=== PATIENT | female | born 1980 | race Caucasian/White ===

== ENCOUNTER 2024-03-01 22:29 | Emergency (ER) | payer SELFPAY ==
[~2024-03-01] VITALS: Ht 152.4 cm; Wt 101.2 kg
[2024-03-01] MEDS: METHYLPREDNISOLONE SOD SUCC 125 MG/2ML VIAL IV STA (22:50)
[2024-03-01] MEDS: METOCLOPRAMIDE HCL 10 MG/2ML VIAL IV STA (22:50)
[2024-03-01] MEDS: KETOROLAC TROMETHAMINE 30 MG/ML VIAL IV STA (22:50)
[2024-03-01] MEDS: DIPHENHYDRAMINE HCL INJ 50 MG/ML VIAL IV STA (22:50)
[2024-03-01] MEDS ORDERED: KETOROLAC TROMETHAMINE 30 MG/ML VIAL ONE (22:51)
[2024-03-01] MEDS: SODIUM CHLORIDE 0.9% 1000ML 1,000 ML IV STA (22:51)
[2024-03-01] MEDS ORDERED: METOCLOPRAMIDE HCL 10 MG/2ML VIAL ONE (22:51)
[2024-03-01 23:13] LABS: BASOPHILS # (AUTO) 0.1 (0.0-0.1); BASOPHILS % 0.4 % (0.0-1.0); EOSINOPHILS # (AUTO) 0.3 (0.0-0.4); EOSINOPHILS % 2.5 % (0.0-6.0); LYMPHOCYTES # (AUTO) 3.9 (1.0-3.2); MEAN CORPUSCULAR HGB CONC 32.5 g/dL (31-35); MONOCYTES # (AUTO) 1.1 (0.2-0.8); MONOCYTES % 9.5 % (4.4-11.3); NEUTROPHILS # (AUTO) 6.2 (2.1-6.9); NEUTROPHILS % 53.3 % (38.7-80.0); PLATELET COUNT 310 x10e3/uL (140-360); RED BLOOD COUNT 4.65 x10e6/uL (3.6-5.1); RED CELL DISTRIBUTION WIDTH 13.1 % (11.7-14.4)
[2024-03-01 23:26] LABS: ALBUMIN 4.1 g/dL (3.5-5.0); ALBUMIN/GLOBULIN RATIO 1.6 (0.8-2.0); ANION GAP 13.1 mmol/L (8-16); BILIRUBIN,TOTAL 0.2 mg/dL (0.2-1.2); CALCIUM 9.2 mg/dL (8.4-10.2); CREATININE, SERUM 0.82 mg/dL (0.57-1.11); TOTAL PROTEIN 6.7 g/dL (6.5-8.1)
[2024-03-01 23:27] LABS: POTASSIUM 3.1 mmol/L (3.5-5.1)
[2024-03-01] MEDS ORDERED: FIORICET 50-301 EACH PO (23:47)
[2024-03-02 00:45] VITALS: PULSE 67; RESP 16; TEMP 98.5; O2SAT 100
== END 2024-03-02 00:56 | disposition home or self-care (01) ==
LOC: ER 22:33
DX: R51.9 Headache, unspecified (principal); R03.0 Elevated blood-pressure reading, without diagnosis of hypertension; R11.2 Nausea with vomiting, unspecified
CPT/HCPCS: 36415; 70450; 80053; 85025; 99284; J1200; J1885; J2765; J2919; J7030